=== PATIENT | female | born 1990 | race Caucasian/White ===

== ENCOUNTER 2017-06-21 14:11 | Emergency (ER) | payer OTHER ==
[~2017-06-21] VITALS: Ht 165.1 cm; Wt 63.6 kg
[2017-06-21 14:11] VITALS: BP 114/75
[2017-06-21] MEDS ORDERED: LEVO125T4 PO (14:18)
[2017-06-21] MEDS ORDERED: BENA25CA4 PO (14:38)
[2017-06-21] MEDS ORDERED: PRED20TA PO (14:38)
== END 2017-06-21 14:49 | disposition home or self-care (01) ==
LOC: M ED 14:11
DX: L23.7 Allergic contact dermatitis due to plants, except food (principal); Z79.899 Other long term (current) drug therapy; Z88.0 Allergy status to penicillin

== ENCOUNTER 2017-12-18 17:12 | Emergency (ER) | payer OTHER ==
[2017-12-18] MEDS: LIDOCAINE 1% MDV 20ML VIAL SC (18:30)
== END 2017-12-18 19:47 | disposition home or self-care (01) ==
LOC: M ED 17:12
DX: S90.212A Contusion of left great toe with damage to nail, initial encounter (principal); W23.0XXA Caught, crushed, jammed, or pinched between moving objects, initial encounter; Y92.9 Unspecified place or not applicable; Y93.9 Activity, unspecified; Y99.9 Unspecified external cause status; E03.9 Hypothyroidism, unspecified; Z79.899 Other long term (current) drug therapy; Z88.0 Allergy status to penicillin
CPT/HCPCS: 73630

== ENCOUNTER 2018-02-25 11:27 | Emergency (ER) | payer OTHER | END 2018-02-25 13:46 | disposition home or self-care (01) | LOC: M ED 11:27 | DX: M25.461 Effusion, right knee (principal) | CPT/HCPCS: 73564 ==